=== PATIENT | male | born 1950 | race Hispanic/Latino ===

== ENCOUNTER 2017-05-29 05:43 | Day surgery (SDC) | payer BC, MEDICARE ==
[2017-05-27 09:03] VITALS: BMI 35.5
[2017-05-29] MEDS ORDERED: CEFAZOLIN/Water 2 GM/20 ML SYRINGE ONE ×2 (06:07→12:38)
[2017-05-29] MEDS ORDERED: Bupivacaine 0.5% 10 ML VIAL ONE (06:34)
[2017-05-29] MEDS ORDERED: Thrombin 5000 UNITS/5 ML VIAL ONE (06:34)
[2017-05-29] MEDS ORDERED: Midazolam HCl 2 mg/2 ml Vial ONE (07:06)
[2017-05-29] MEDS ORDERED: Fentanyl 100 MCG/2 ML VIAL ONE ×2 (07:46→09:34)
--- NOTE | 2017-05-29 09:20 | OP ---
DATE OF PROCEDURE: 05/29/2017 SURGEON: Sean Negro M.D. BOW [employer]KER PRODUCTION: Clayton Orlando PA-C INDICATION: Pain. DIAGNOSIS: Lateral recess stenosis with lumbar radiculopathy. PROCEDURE: Bilateral L4-5 hemilaminectomy, medial facetectomy, decompression of lateral recesses. ANESTHESIA: General. TECHNIQUE: The patient was brought to the operating room and placed under general anesthesia. He wa s flipped from a supine to a prone position on the operating room table. A linear incision was plann ed over the L4-L5 segment. After prepping and draping and after an appropriate operative pause, the incision was created. Soft tissues were swept away from midline. A self-retaining retractor was anitha otto in the wound for optimal exposure. After confirming the appropriate level with C-arm fluoroscopy a high high-speed cutting drill bit was used to perform a laminectomy along the inferior aspect of L 4 and the superior aspect of L5 bilaterally. The laminectomy as well as medial facetectomies were co mpleted bilaterally until the lateral recesses were well decompressed. I could identify the descendi ng L5 nerve roots which were free from compression. The wound was then irrigated. Hemostasis was ma intained throughout. The wound was then closed in anatomic layers and a pressure dressing was applie d. There were no known procedural complications.
[2017-05-29] MEDS ORDERED: HYDROmorphone 0.5 MG/0.5 ML SYRINGE ONE (09:35)
--- NOTE | 2017-05-29 15:41 | EKG ---
Test Reason : PREOP Blood Pressure : / mmHG Vent. Rate : 067 BPM Atrial Rate : 067 BPM P-R Int : 128 ms QRS Dur : 112 ms QT Int : 402 ms P-R-T Axes : -01 019 041 degrees QTc Int : 424 ms Normal sinus rhythm Normal ECG Confirmed by BERNARDO WOOTEN ([id number]) on 05/29/2017 3:41:35 PM Referred By: MARCO Confirmed By:BERNARDO WOOTEN
== END 2017-05-29 15:08 | disposition home or self-care (01) ==
LOC: SDC 05:43
PROVIDERS: ATTEND Neurological Surgery
PROC: 01NB0ZZ Release Lumbar Nerve, Open Approach (ICD-10-PCS; principal; 2017-05-29)
DX: M48.061 Spinal stenosis, lumbar region without neurogenic claudication (principal); M54.16 Radiculopathy, lumbar region; E11.9 Type 2 diabetes mellitus without complications; E66.9 Obesity, unspecified; I10 Essential (primary) hypertension; Z68.35 Body mass index [BMI] 35.0-35.9, adult; Z79.82 Long term (current) use of aspirin; Z79.84 Long term (current) use of oral hypoglycemic drugs; Z79.899 Other long term (current) drug therapy
CPT/HCPCS: 76001; 93005; 96374; J0131; J1170; J2250; J2270; J3010; J3490